=== PATIENT | female | born 1960 | race Caucasian/White ===

== ENCOUNTER → 2024-03-24 11:36 | Outpatient (REF) | payer OTHER, SELFPAY ==
[2024-03-24 15:48] LABS: % Basophils 0.5 % (0-2); % Eosinophils 0.8 % (0-6); % Immature Granulocytes 0.2 % (0-0.5); % Lymphocytes 28.7 % (20.5-51.1); % Monocytes 9.4 % (1.7-9.3); % Neutrophils 60.4 % (42.2-75.2); Absolute Eosinophils 0.1 10^3/uL (0-0.7); Absolute Lymphocytes 1.8 10^3/uL (1.2-3.4); Absolute Monocytes 0.6 10^3/uL (0.1-0.6); Absolute Neutrophils 3.8 10^3/uL (1.4-6.5); Hematocrit 38.4 % (37.0-47.0); Hemoglobin 13.2 g/dL (12.0-16.0); Mean Corp Hgb Conc. 34.4 g/dL (33.0-37.0); Mean Corpuscular Hgb 32.2 pg (27.0-31.0); Mean Corpuscular Volume 93.7 fL (81.0-99.0); Mean Platelet Volume 9.9 fL (7.4-10.4); Nucleated Red Blood Cells % 0 %; Platelet Count 273 10^3/uL (130-400); Red Cell Dist. Width 12.9 % (11.5-14.5); White Blood Cell Count 6.3 10^3/uL (4.8-10.8)
[2024-03-24 15:53] LABS: Blood Urea Nitrogen 9 mg/dl (7-17); Calcium 9.8 mg/dl (8.4-10.2); Carbon Dioxide 27 mmol/L (22-30); Chloride 98 mmol/L (98-107); Glucose 90 mg/dl (70-99); Potassium 4.4 mmol/L (3.5-5.1); Sodium 134 mmol/L (135-145); eGFR > 60.00
== END ==
LOC: HWCARD 11:36
PROVIDERS: ATTENDING PHYSICIAN Orthopaedic Surgery; FAMILY PHYSICIAN Family Medicine
DX: S83.241A Other tear of medial meniscus, current injury, right knee, initial encounter (principal)
CPT/HCPCS: 36415; 80048; 85025; 93005

== ENCOUNTER → 2024-05-19 09:56 | Outpatient (REF) | payer OTHER, SELFPAY | LOC: HWWDC 09:56 | PROVIDERS: ATTENDING PHYSICIAN Registered Nurse; FAMILY PHYSICIAN Family Medicine | DX: Z12.31 Encounter for screening mammogram for malignant neoplasm of breast (principal) | CPT/HCPCS: 77063; 77067 ==

== ENCOUNTER → 2024-08-07 13:52 | Outpatient (REF) | payer OTHER, SELFPAY | LOC: HWRCS 13:52 | PROVIDERS: ATTENDING PHYSICIAN Internal Medicine; FAMILY PHYSICIAN Family Medicine | DX: R94.31 Abnormal electrocardiogram [ECG] [EKG] (principal); I44.1 Atrioventricular block, second degree | CPT/HCPCS: 93306 ==

== ENCOUNTER 2024-10-27 07:16 | Day surgery (SDC) | payer OTHER, SELFPAY ==
[2024-10-27] VITALS (19 sets, daily range): BP systolic 112–135; BP diastolic 67–95; BMI 21.6
--- NOTE | 2024-10-27 09:21 | ITS.CL.PACE ---
Lead Bi Developer - Pacemaker Implant
Pacemaker Implant
Procedure Report:
Dual Chamber Pacemaker Placement:
Ms. 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
Indications: Tachy-tiffany syndrome
Date of the Procedure: 10/27/2024
Pre-Operative Diagnosis: Tachy-tiffany syndrome
Post-Operative Diagnosis: Tachy-tiffany syndrome
Procedure Performed: DUAL CHAMBER PACEMAKER IMPLANTATION
Performing Physician:
Ngoc Rivera MD
Anesthesia:
See anesthesia records
Pre-operative antibiotics:
Ancef 2 gram
Detailed Description of the Procedure:
The patient was identified using hospital identification and informed consent obtained for the procedure. The risks were explained including, but not limited to: Bleeding, infection, arrhythmia, stroke, vascular/cardiac/lung puncture, surgery,
pacemaker dependency/device malfunction. All questions were answered.
The patient was brought to the electrophysiology laboratory in stable condition in fasting state. Continuous electrocardiographic and hemodynamic monitoring was initiated.
The initial rhythm was sinus rhythm.
The procedure site was meticulously prepared with surgical scrub and allowed to dry with no pooling. Sterile draping was applied to cover the procedure site. The image intensifier was draped with sterile bag and positioned over the patient.
A surgical pause and time out was performed immediately prior to the procedure with review of her medical history, recent labs, allergies and medications with site of procedure identified and consent noted in the chart. Antibiotics pre operatively
given. All team members concurred.
The left infraclavicular region was prepped and draped in the usual sterile fashion. Local anesthesia was administered subcutaneously using 1% lidocaine / Bupivacaine. The left cephalic vein cutdown was performed with an incision at the
delto-pectoral groove, and vascular sheaths were introduced for lead access. These were advanced into the right ventricle and the right atrium.
The right ventricular lead was secured in position with an active fixation technique at the septal location.
The RA lead was attached in the right atrial appendage with active fixation in the RAA.
There was excellent sensing, pacing, and impedance from the leads, with no diaphragmatic stimulation at 10 V output.�Bovie cautery, antibiotics, and fluoroscopy were used.
The sheaths were withdrawn, and the thresholds remained acceptable. The leads were secured in position at the venous entry site with 0-silk. A pocket was fashioned contiguous to the incision. The electrode terminals were connected to the pulse
generator, which was placed into the pocket. The generator was secured to the underlying fascia.
The wound was irrigated thoroughly with antibiotic solution.
The wound was closed in 3 layers using 2-0 V loc then two layers of 4-0 VLoc sutures to the dermis. Steri-strips were applied externally and covered with Aquacel bandage.
Procedure End:
The procedure was tolerated well.
Estimated Blood loss:
5 cc
Specimens Removed:
No cultures and no specimens were obtained. No intraoperative pathology was identified.
Urine output:
None
Packs / Drains/ Tubes:
None
Instrument / Sponge Count Correct:
Yes
Complications of the Procedure:
None
Condition of Patient at Time of Transfer:
Hemodynamically stable with no neurological or vascular compromise.
Device information:�
Generator: [employer]; Model: [id number]; Serial #[id number]
Atrial Lead: [employer]; Model: [id number]/52; Serial # [id number]
Measured data in the right atrium was sensing of 3.3mV, impedance of 480 ohms and threshold of 1.0V at 0.4ms�
RV Lead: [employer]; Model: [id number]/58; Serial # [id number]
Measured data in the RV lead was sensing of >12 mV, impedance of 790 ohms and threshold of 1.0 V at 0.4ms�
Tiffany parameter settings were DDDR 60-130 bpm. �(VIP mode on)
��������������� Mode Switch: On
��������������� Paced AV interval: 180ms
��������������� Sensed AV interval: 150 ms.
��������������� Rate Adaptive A-V Interval: Off
Summary:
Successful implantation of MRI compatible dual chamber [employer]am pacemaker
Results/Recommendations:
-Please follow up CXR�
1. Please provide patient with adequate pain control�
Instructions to be given to patient:�
- Please follow up with [facility] at [address] [place] [address] ([phone]) to get your wound checked within 14 days of your discharge.
- Do not wet incision site until after it is evaluated at cardiology clinic. No soaking or bath until then. Showers or Sponge baths are OK.�Dab dry the area after a shower.
- Do not lift left elbow above shoulder, particularly with sudden jerking movements, for 1 month�
- Do not lift anything weighing more than 10 pounds with the left arm for 1 month�
- If you notice any fevers, shortness of breath, lightheadedness, chest pain, or worsening swelling in the wound site, please contact the arrhythmia clinic, contact your junior buyer, or present to the hospital for evaluation.�
Ngoc Rivera MD
Electrophysiology
--- NOTE | 2024-10-27 13:03 | W.PN.UPDATE ---
Update Note
Progress Note Update
Pt seen post PPM implant. Left ACW aquacel dressing intact with scant drainage, no ht/bleeding. Post CXR w/stable lead position, no pneumothorax. Post EKG NSR, no acute changes. Activity limitations reviewed w/pt, , all questions answered.
Incision check next week at [facility]. Home today after antibiotics and if tele/wound site stable.
[2024-10-27] MEDS: ANCEF 5 IV (13:48)
== END 2024-10-27 14:12 | disposition home or self-care (01) ==
LOC: CATH 07:16
PROVIDERS: ATTENDING PHYSICIAN Internal Medicine Cardiovascular Disease; FAMILY PHYSICIAN Family Medicine; OTHER PHYSICIAN Internal Medicine
DX: I49.5 Sick sinus syndrome (principal); Z79.899 Other long term (current) drug therapy; I47.10 Supraventricular tachycardia, unspecified; I44.30 Unspecified atrioventricular block
CPT/HCPCS: 33208; 71045; 93005; C1769; C1785; C1892; C1898

== ENCOUNTER → 2024-11-12 13:38 | Outpatient (REF) | payer OTHER, SELFPAY | LOC: RAD 13:38 | PROVIDERS: ATTENDING PHYSICIAN Internal Medicine Cardiovascular Disease; FAMILY PHYSICIAN Family Medicine | DX: I49.5 Sick sinus syndrome (principal); Z95.0 Presence of cardiac pacemaker | CPT/HCPCS: 71046 ==

== ENCOUNTER → 2025-07-09 07:43 | Outpatient (REF) | payer OTHER, SELFPAY | LOC: HWWDC 07:43 | PROVIDERS: ATTENDING PHYSICIAN Registered Nurse; FAMILY PHYSICIAN Family Medicine | DX: Z12.31 Encounter for screening mammogram for malignant neoplasm of breast (principal) | CPT/HCPCS: 77063; 77067 ==

== ENCOUNTER → 2025-07-15 10:43 | Outpatient (REF) | payer OTHER, SELFPAY | LOC: HWRAD 10:43 | PROVIDERS: ATTENDING PHYSICIAN Hospitalist; FAMILY PHYSICIAN Family Medicine | DX: M81.0 Age-related osteoporosis without current pathological fracture (principal) | CPT/HCPCS: 77080 ==

== ENCOUNTER 2025-10-04 05:51 | Day surgery (SDC) | payer OTHER, SELFPAY ==
[2025-09-27 08:13] VITALS: BMI 21.8
[2025-09-27 09:23] LABS: Hematocrit 38.3 % (37.0-47.0); Hemoglobin 12.8 g/dL (12.0-16.0); Mean Corp Hgb Conc. 33.4 g/dL (33.0-37.0); Mean Corpuscular Volume 94.3 fL (81.0-99.0); Platelet Count 251 10^3/uL (130-400); Red Cell Dist. Width 12.6 % (11.5-14.5)
[2025-09-27 09:33] LABS: ALT (SGPT) 18 U/L (0-35); AST (SGOT) 30 U/L (14-36); Albumin 4.9 g/dl (3.5-5.0); Alkaline Phosphatase 56 U/L (38-126); Blood Urea Nitrogen 11 mg/dl (7-17); Calcium 9.6 mg/dl (8.4-10.2); Carbon Dioxide 31 mmol/L (22-30); Chloride 99 mmol/L (98-107); Estimated Creatinine Clearance 97 ml/min; Glucose 74 mg/dl (70-99); Potassium 5.0 mmol/L (3.5-5.1); Sodium 138 mmol/L (135-145); Total Protein 7.2 g/dl (6.3-8.2); eGFR > 60.00
[2025-09-27 13:08] LABS: Absolute Neutrophils -Man Diff 1.4 10^3/uL (1.4-6.5)
[2025-09-27 13:09] LABS: Platelets Checked Yes
[2025-09-27 13:10] LABS: Normal RBC Morphology Yes; Total Cells Counted 100
[2025-10-04] VITALS (21 sets, daily range): BP systolic 84–112; BP diastolic 46–73; BMI 21.8
[2025-10-04 08:51] LABS: ACT-LR - POC 395 Seconds (116-155)
--- NOTE | 2025-10-04 09:16 | ITS.CL.ABL ---
Manager Philosophy - Ablation
Ablation
Procedure Report:
AFIB ablation:
Ms. Watkins is a very pleasant 65 yr old woman with medical history significant for symptomatic paroxysmal atrial fibrillation, tachy tiffany syndrome s/p dual chamber PPM ([employer]) is here in the EP lab for atrial fibrillation ablation
Date of Procedure:
10/04/2025
Indications:
Symptomatic paroxysmal atrial fibrillation
Pre-Operative Diagnosis:
Paroxysmal atrial fibrillation
Post-Operative Diagnosis:
Paroxysmal atrial fibrillation
Procedure Performed:
Atrial fibrillation ablation with wide area circumferential ablation (WACA) approach for pulmonary vein isolation
Performing Physician:
Ngoc Rivera MD
Assistants:
EP staff
Anesthesia:
See anesthesia records
Detailed Description of the Procedure:
Written informed consent was obtained from the patient after a full explanation of the risks and benefits of the procedure including the risks of sedation and anesthesia.
The patient was brought to the electrophysiology laboratory in stable condition in fasting state. Continuous electrocardiographic and hemodynamic monitoring was initiated.
The initial rhythm was sinus rhythm.
The procedure site was meticulously prepared with surgical scrub and allowed to dry with no pooling. Sterile draping was applied to cover the procedure site. The image intensifier was draped with sterile bag and positioned over the patient. After
infusion of local anesthetic, vascular access was obtained under ultrasound guidance and sheaths were placed over guide wire as detailed below.
The images of the ultrasound of the femoral vessels were stored in patient chart.
Sheath and Catheter Placement:
In the right femoral vein, a 10-Slovenian sheath was placed under ultrasound guidance for use during the ablation procedure. In the right femoral vein, another 9-Fr sheath was placed for use during intracardiac echo procedure.
The sheaths were upgraded as needed during the case. Intracardiac catheters were positioned using direct fluoroscopic guidance. ICE catheter was placed in RA. The following catheters / sheaths were placed
Sheaths:
Agilis sheath in right femoral vein upgraded from 9Fr in right femoral vein
10Fr in right femoral vein
Catheters:
The Affera Sphere 9 catheter -bidirectional D/F - at locations of HRA, LA and LV.
ICE catheter -AccuNav - at locations of RA, SVC, and RV.
Heparin was initiated after the access was obtained.
Intracardiac ECHO:
An 8-Slovenian AcuNav intracardiac ECHO (ICE) probe was advanced through the 10-Slovenian sheath in the left femoral vein into the right atrium under fluoroscopic and ICE ultrasound image guidance and a baseline ECHO study was performed. The left atrial
size was mildly dilated. There was trace tricuspid regurgitation. The aortic valve was grossly normal. There was normal left ventricular size and function. There is no pericardial effusion. The GATITO has baseline normal velocities. The pulmonary had
good flow identified.
During the procedure, ICE was used for monitoring of complications, guidance of trans-septal puncture, monitor the catheter position and tracking ablation lesions. No change in the pericardial space noted throughout the procedure.
Trans-septal Puncture:
Heparin was initiated and infused to maintain appropriate ACT. A J-tipped guidewire was advanced through into the superior vena cava under fluoroscopic and ICE guidance. The Agilis sheath with BRK needle was advanced into the superior vena cava over
the guidewire. The apparatus was withdrawn until it was in contact with the fossa ovalis. The position was adjusted based on fluoroscopy and ultrasound images from ICE. Under fluoroscopic, hemodynamic and ICE ultrasound guidance, left atrium was
cannulated by advancing the needle. Once atrial septum was cannulated, the needle was pulled back and the guide wire was advanced through the needle into the left atrium. The guide wire was advanced into the left superior pulmonary vein. Both the
sheath and the dilator was advanced into the left atrium. The dilator with the needle was withdrawn. Blood was aspirated from the Agilis sheath and arterial blood confirmed. The sheath was flushed. Saline injection noted into the left atrium on ICE.
The waveform of the LA pressure was recorded. The mapping catheter was advanced in the Agilis sheath into the left pulmonary vein.
3D Electroanatomic Mapping:
Using the Sphere 9 Affera catheter advanced through Agilis sheath into the left atrium, an electroanatomic map (EAM) of the left atrium was created using Affera� mapping system with Prism-1 software. The map was used for localization of catheter
position and tacking of ablation lesions. The EAM of the left atrium showed a total of 4 PVs with a two left and two right sided pulmonary veins with all electrically connected to the body the LA. It showed no significant scar on the posterior wall
of the LA. The LA was dilated in size.
Following the EAM, preparation were made for ablation.
Ablation:
Ablation # 2: Pulmonary vein Isolation:
Glycopyrrolate 0.2 mg was given prior to the placement of ablation.
Pulsed field ablation was performed using an open irrigation, bidirectional, contact sensing, dual energy ablation catheter ([email or web address] sphere -9) by completing the circumferential lesions around the left and right pulmonary veins achieving pulmonary
vein isolation.
Confirmation of the PVI and bidirectional block:
Following achievement of entrance block at the pulmonary veins, pacing from the Sphere 9 affera catheter in each of the four veins at 20 milliamps for 4 milliseconds showed entrance and exit block.
The LA was mapped with The [employer]� mapping system with Prism-1 software in sinus rhythm confirming the line of block at the ablation lesions lines.
EP study:
Sinus Node Function: The sinus node functions are within acceptable normal range.
Atrioventricular Linnea Function: Normal AV conduction noted with normal AV linnea conduction time.
Procedure End
ICE study was done again that showed no epicardial accumulation. No complications noted.
Following the completion of the EP study, catheters were removed. Protamine 40 mg was given at the end of the procedure and ACT was checked repeatedly. The sheaths were removed and hemostasis achieved with Figure of 8 suture and manual compression
after acceptable ACT is achieved.
Left atrial Pressure:
Pre-Procedure: Mean LA pressure was 7mmHg
Post-Procedure: Mean LA pressure was 10mmHg
Post-Procedure: Mean RA pressure was 7mmHg
Estimated Blood loss:
<10 cc
Specimens Removed:
None.
Implants / Devices:
None
Urine output:
None
Packs / Drains/ Tubes:
None
Instrument / Sponge Count Correct:
Yes
Complications of the Procedure:
None
Condition of Patient at Time of Transfer:
Hemodynamically stable with no neurological or vascular compromise.
Summary:
Successful atrial fibrillation ablation with circumferential bidirectional line of block at pulmonary vein antra (Pulmonary vein isolation)
Figures from the Procedure:
Figure 1: The electroanatomic mapping (EAM) of the left atrium with bipolar voltage (purple indicates normal electrical activity with red as no myocardial muscle electric activity indicating a line of block or scar.
[2025-10-04 10:28] LABS: ACT-LR - POC > 397 Seconds (116-155)
--- NOTE | 2025-10-04 14:24 | W.PN.UPDATE ---
Update Note
Progress Note Update
Pt seen post PFA. Right groin site without ht/bleeding, oob ambulating, urinating without difficulty. Post EKG NSR 64 w/inc RBBB as before, no acute changes. Resume eliquis tonight. Mild asymptomatic hypotension during recovery with good response to
IV fluids. Followup at [facility] as scheduled. Home today if groin site/tele remain stable.
== END 2025-10-04 15:00 | disposition home or self-care (01) ==
LOC: CATH 05:51
PROVIDERS: ATTENDING PHYSICIAN Internal Medicine Cardiovascular Disease; FAMILY PHYSICIAN Family Medicine; OTHER PHYSICIAN Internal Medicine Rheumatology
DX: I48.0 Paroxysmal atrial fibrillation (principal); I49.5 Sick sinus syndrome; Z95.0 Presence of cardiac pacemaker; Z79.01 Long term (current) use of anticoagulants; Z79.899 Other long term (current) drug therapy
CPT/HCPCS: C1733; C1769; C1894; C1766; C1892; C1759; 36415; 80053; 85025; 85347; 86850; 86900; 86901; 93005; 93656